=== PATIENT | female | born 1955 | race Caucasian/White ===

== ENCOUNTER 2016-05-05 22:51 | Emergency (ER) | payer OTHER ==
[2016-05-06] MEDS ORDERED: HYDROCODONE/ACETAMINOPHEN 5/325MG TABLET ONE (00:03)
[2016-05-06] MEDS ORDERED: IBUPROFEN 800 MG TABLET ONE (00:03)
[2016-05-06] MEDS ORDERED: OXYCODONE/ACETAMINOPHEN 5/325 MG TABLET ONE (00:49)
--- NOTE | 2016-05-06 07:30 | RAD ---
RIGHT FOOT 3 VIEWS HISTORY: Right foot pain and swelling status post crush injury. COMPARISONS: None. TECHNIQUE: Frontal, lateral, and oblique views of the left foot. ALIGNMENT: Grossly unremarkable. FRACTURE: Contour irregularity and lucency of the medial cuneiform on oblique view only. Oblique fracture of the right distal fibula. SOFT TISSUES: Soft tissue swelling of the forefoot. RADIOOPAQUE FOREIGN BODY: None. IMPRESSION: 1. Nondisplaced oblique fracture of the right distal fibula. 2. Nondisplaced fracture of the right medial cuneiform. 3. Diffuse forefoot soft tissue swelling.
--- NOTE | 2016-05-06 07:32 | RAD ---
RIGHT ANKLE 3 VIEWS HISTORY: Right ankle pain status post crush injury COMPARISONS: None. TECHNIQUE: Frontal, lateral, and oblique views of the right ankle. ALIGNMENT: Grossly unremarkable. Ankle mortise intact. FRACTURE: Nondisplaced oblique fracture of the right distal fibula. Nondisplaced longitudinal fracture of the medial malleolus. Minor calcification along lateral aspects of the calcaneus may reflect prior avulsion injury. SOFT TISSUES: Mild to moderate soft tissue swelling RADIOOPAQUE FOREIGN BODY: None. IMPRESSION: 1. Nondisplaced oblique fracture of the right distal fibula. 2. Nondisplaced medial malleolar fracture. 3. Ankle mortise intact. Soft tissue swelling.
== END 2016-05-06 01:22 | disposition home or self-care (01) ==
LOC: ED 22:51
DX: S82.841A Displaced bimalleolar fracture of right lower leg, initial encounter for closed fracture (principal); I10 Essential (primary) hypertension; F32.9 Major depressive disorder, single episode, unspecified; W19.XXXA Unspecified fall, initial encounter; Z79.899 Other long term (current) drug therapy; Z88.5 Allergy status to narcotic agent; Z91.018 Allergy to other foods
CPT/HCPCS: 73610; 73630; 99284 ×2; A9270 ×3